=== PATIENT | male | born 1955 | race Caucasian/White ===

== ENCOUNTER 2016-09-29 22:22 | Emergency (ER) | payer BC ==
[~2016-09-29] VITALS: Ht 177.8 cm; Wt 117.9 kg
[2016-09-29 22:23] VITALS: BP 147/78
[2016-09-29] MEDS ORDERED: OMEP40CA2 PO (22:32)
[2016-09-29] MEDS ORDERED: LORA2CON5 PO (22:32)
[2016-09-29] MEDS ORDERED: LORA1TAB12 PO (22:32)
[2016-09-29] MEDS ORDERED: CLAR10TA13 PO (22:34)
[2016-09-29] MEDS ORDERED: MAGN400C2 PO (22:34)
[2016-09-29] MEDS ORDERED: FISH100049 PO (22:34)
[2016-09-29] MEDS ORDERED: ASPI1TAB PO (22:34)
[2016-09-29] MEDS ORDERED: AMIT25TA PO (22:34)
[2016-09-29] MEDS ORDERED: LIDOCAINE 1% MDV 20ML VIAL As Ordered ONE (23:35)
== END 2016-09-30 00:32 | disposition home or self-care (01) ==
LOC: M ED 09-30 00:29
DX: S61.215A Laceration without foreign body of left ring finger without damage to nail, initial encounter (principal); W29.0XXA Contact with powered kitchen appliance, initial encounter; Y92.89 Other specified places as the place of occurrence of the external cause; Y93.89 Activity, other specified; Y99.8 Other external cause status; Z79.899 Other long term (current) drug therapy; Z79.82 Long term (current) use of aspirin

== ENCOUNTER 2020-08-10 09:40 | Emergency (ER) | payer BC, MEDICARE ==
[~2020-08-10] VITALS: Ht 175.3 cm; Wt 121.7 kg
[~2020-08-10 09:40] MED LIST: AMIT25TA17 PO; ASPI81TA26 PO; CLAR1TAB13 PO; FISH100049 PO; LORA1TAB4 PO; LORA2CON5 PO; MAGN400C2 PO; OMEP40CA97 PO
[2020-08-10 09:41] VITALS: BP 140/80
--- OUTSIDE RECORDS SUMMARY | 2020-08-10 09:47 | CCD ---
Author Author [facility] Organization [facility] Address Unknown Phone Unavailable Care Team Providers Care Protection Manager Name Role Phone JARROD FARAH MD Unavailable Unavailable JARROD FARAH MD Unavailable Unavailable JARROD FARAH MD Unavailable Unavailable JARROD FARAH MD Unavailable Unavailable JARROD FARAH MD Unavailable Unavailable JARROD FARAH MD Unavailable Unavailable JARROD FARAH MD Unavailable Unavailable JARROD FARAH MD Unavailable Unavailable JARROD FARAH MD Unavailable Unavailable JARROD FARAH MD Unavailable Unavailable JARROD FARAH MD Unavailable Unavailable JARROD FARAH MD Unavailable Unavailable JARROD FARAH MD Unavailable Unavailable JARROD FARAH MD Unavailable Unavailable JARROD FARAH MD Unavailable Unavailable JARROD FARAH MD Unavailable Unavailable JARROD FARAH MD Unavailable Unavailable JARROD FRAAH MD Unavailable Unavailable JARROD FARAH MD Unavailable Unavailable JARROD FARAH MD Unavailable Unavailable JARROD FARAH MD Unavailable Unavailable JARROD FARAH MD Unavailable Unavailable JARROD FARAH MD Unavailable Unavailable JARROD FARAH MD Unavailable Unavailable CHROSTOWSKI, JARROD MD Unavailable Unavailable CHROSTOWSKI, JARROD MD Unavailable Unavailable CHROSTOWSKI, JARROD MD Unavailable Unavailable CHROSTOWSKI, JARROD MD Unavailable Unavailable CHROSTOWSKI, JARROD MD Unavailable Unavailable CHROSTOWSKI, JARROD MD Unavailable Unavailable CHROSTOWSKI, JARROD MD Unavailable Unavailable CHROSTOWSKI, JARROD MD Unavailable Unavailable CHROSTOWSKI, JARROD MD Unavailable Unavailable CHROSTOWSKI, JARROD MD Unavailable Unavailable CHROSTOWSKI, JARROD MD Unavailable Unavailable CHROSTOWSKI, JARROD MD Unavailable Unavailable CHROSTOWSKI, JARROD MD Unavailable Unavailable CHROSTOWSKI, JARROD MD Unavailable Unavailable CHROSTOWSKI, JARROD MD Unavailable Unavailable CHROSTOWSKI, JARROD MD Unavailable Unavailable LUKAS, M DALY DO Unavailable Unavailable LUKAS, M DALY DO Unavailable Unavailable LUKAS, M DALY DO Unavailable Unavailable LUKAS, M DALY DO Unavailable Unavailable LUKAS, M DALY DO Unavailable Unavailable LUKAS, M DALY DO Unavailable Unavailable LUKAS, M DALY DO Unavailable Unavailable LUKAS, M DALY DO Unavailable Unavailable LUKAS, M DALY DO Unavailable Unavailable LUKAS, M DAYL DO Unavailable Unavailable LUKAS, M DALY DO Unavailable Unavailable LUKAS, M DALY DO Unavailable Unavailable LUKAS, M DALY DO Unavailable Unavailable LUKAS, M DALY DO Unavailable Unavailable LUKAS, M DALY DO Unavailable Unavailable LUKAS, M DALY DO Unavailable Unavailable LUKAS, M DALY DO Unavailable Unavailable LUKAS, M DALY DO Unavailable Unavailable LUKAS, M DALY DO Unavailable Unavailable LUKAS, M DALY DO Unavailable Unavailable LUKAS, M DALY DO Unavailable Unavailable LUKAS, M DALY DO Unavailable Unavailable LUKAS, M DALY DO Unavailable Unavailable LUKAS, M DALY DO Unavailable Unavailable LUKAS, M DALY DO Unavailable Unavailable LUKAS, M DALY DO Unavailable Unavailable LUKAS, M DALY DO Unavailable Unavailable LUKAS, M DALY DO Unavailable Unavailable LUKAS, M DALY DO Unavailable Unavailable LUKAS, M DALY DO Unavailable Unavailable LUKAS, M DALY DO Unavailable Unavailable LUKAS, M DALY DO Unavailable Unavailable LUKAS, M DALY DO Unavailable Unavailable LUKAS, M DALY DO Unavailable Unavailable LUKAS, M DALY DO Unavailable Unavailable LUKAS, M DALY DO Unavailable Unavailable LUKAS, M DALY DO Unavailable Unavailable LUKAS, M DALY DO Unavailable Unavailable LUKAS, M DALY DO Unavailable Unavailable LUKAS, M DALY DO Unavailable Unavailable LUKAS, M DALY DO Unavailable Unavailable LUKAS, M DALY DO Unavailable Unavailable LUKAS, M DALY DO Unavailable Unavailable LUKAS, M DALY DO Unavailable Unavailable LUKAS, M DALY DO Unavailable Unavailable LUKAS, M DALY DO Unavailable Unavailable LUKAS, M DALY DO Unavailable Unavailable LUKAS, M DALY DO Unavailable Unavailable LUKAS, M DALY DO Unavailable Unavailable LUKAS, M DALY DO Unavailable Unavailable LUKAS, M DALY DO Unavailable Unavailable LUKAS, M DALY DO Unavailable Unavailable LUKAS, M DALY DO Unavailable Unavailable LUKAS, M DALY DO Unavailable Unavailable LUKAS, M DALY DO Unavailable Unavailable LUKAS, M DALY DO Unavailable Unavailable LUKAS, M DALY DO Unavailable Unavailable LUKAS, M DALY DO Unavailable Unavailable LUKAS, M DALY DO Unavailable Unavailable LUKAS, M DALY DO Unavailable Unavailable LUKAS, M DALY DO Unavailable Unavailable LUKAS, M DALY DO Unavailable Unavailable LUKAS, M DALY DO Unavailable Unavailable LUKAS, M DALY DO Unavailable Unavailable LUKAS, M DALY DO Unavailable Unavailable LUKAS, M DALY DO Unavailable Unavailable LUKAS, M DALY DO Unavailable Unavailable LUKAS, M DALY DO Unavailable Unavailable Re-disclosure Warning The records that you are about to access may contain information from federally-assisted alcohol or drug abuse programs. If such information is present, then the following federally mandated warning applies: This information has been disclosed to you from records protected by federal confidentiality rules (42 CFR part 2). The federal rules prohibit you from making any further disclosure of this information unless further disclosure is expressly permitted by the written consent of the person to whom it pertains or as otherwise permitted by 42 CFR part 2. A general authorization for the release of medical or other information is NOT sufficient for this purpose. The Federal rules restrict any use of the information to criminally investigate or prosecute any alcohol or drug abuse patient.The records that you are about to access may contain highly sensitive health information, the redisclosure of which is protected by Article 27-F of the [facility] Public Health law. If you continue you may have access to information: Regarding HIV / AIDS; Provided by facilities licensed or operated by the [facility] Office of Mental Health; or Provided by the [facility] Office for People With Developmental Disabilities. If such information is present, then the following [facility] mandated warning applies: This information has been disclosed to you from confidential records which are protected by state law. State law prohibits you from making any further disclosure of this information without the specific written consent of the person to whom it pertains, or as otherwise permitted by law. Any unauthorized further disclosure in violation of state law may result in a fine or correction sentence or both. A general authorization for the release of medical or other information is NOT sufficient authorization for further disc losure. Family History Family Member Name Family Member Gender Family Member Status Date o f Status Description Data Source(s) Unknown Female Problem MEDENT ([facility]) Unknown Unknown Problem MEDENT ([facility], ) Unknown Unknown Problem MEDENT ([facility], ) Encounters Encounter Providers Location Date Indications Data Source(s ) Outpatient Attender: JARROD FARAH MD Main Office 04/25/2020 12:00:00 PM EST [facility] Outpatient Attender: DALY GAYTAN DO [facility]MP Internal Med at [place] 02/25/2020 02:45:00 PM EDT MEDENT ([facility]) Daly Gaytan, DO: [address] [place] [address], Ph. Attender: DALY GAYTAN DO [facility] - Main Schedule 07/15/2019 12:00:00 AM EST LOAN ([facility]) Medications Medication Brand Name Start Date Product Form Dose Route Admi nistrative Instructions Pharmacy Instructions Status Indications Reaction Description Data Source(s) MM Vitamin B12 07/08/2020 12:00:00 AM EST ORAL act bowen MEDENT ([facility]) Flonase Sensimist Flonase Sensimist 04/25/2020 12:00:00 AM EST active MEDENT ([facility]) Insurance Providers Payer name Policy type / Coverage type Policy ID Covered democrat ID Covered democrat's relationship to leon Policy Leon Plan Information BCBS [place]OS [place] PPO 302/307 [id number] SP [id number] BCBS [id number] Blue Cross/Blue Shield [id number] BCBS [id number] Blue Cross/Blue Shield [id number] BCBS [id number] Blue Cross/Blue Shield [id number] BCBS [id number] Blue Cross/Blue Shield [id number] BCBS [id number] Blue Cross/Blue Shield [id number] [employer] BC[employer] Health Maintenance Organization (HMO) [id number] Self [id number] BS [place] [employer] Self [employer] BCBS Health Maintenance Organization (HMO) Self BC[place] 306/806 [id number] SP [id number] BLUE CROSS O [id number] S [id number] BLUE CROSS O [id number] S [id number] [place] PPO 302/307 [id number] SP [id number] [place] PPO 302/307 [id number] SP [id number] Social History Code Duration Value Status Description Data Source(s ) Smoking 04/25/2020 12:00:00 AM EST Patient is a former smoker completed Patient is a former smoker MEDTHEO ([facility] ) Vital Signs ID Date Data Source UNK Name Value Range Interpretation Code Description Data Source(s) Diastolic blood pressure 106 mm[Hg] 106 mm[Hg] MEDENT ([facility]) Systolic blood pressure 180 mm[Hg] 180 mm[Hg] M EDENT ([facility]) Body weight 262.00 [lb_av] 262.00 [lb_av] MEDEN T ([facility]) Body mass index (BMI) [Ratio] 37.1 kg/m2 37.1 k g/m2 [facility] ([facility]) Diastolic blood pressure 88 mm[Hg] 88 mm[Hg] [facility] ([facility] Systolic blood pressure 148 mm[Hg] 148 mm[Hg] M EDENT ([facility]) Respiratory rate 16 /min 16 /min MED[facility] ( [facility] Heart rate 73 /min 73 /min [facility] ([facility] [place] Body height 70 [in_i] 70 [in_i] MEDENT [facility] 5'10" Body weight 258.38 [lb_av] 258.38 [lb_av] [facility] T ([facility] Body weight 246 [lb_av] 246 [lb_av] LOAN ([facility]) Systolic blood pressure 140 mm[Hg] 140 mm[Hg] A THENA ([facility]) Body mass index (BMI) [Ratio] 35.3 kg/m2 35.3 k g/m2 LOAN ([facility]) Body height 70 [in_i] 70 [in_i] LOAN ([facility]) Diastolic blood pressure 88 mm[Hg] 88 mm[Hg] LOAN ([facility])
--- OUTSIDE RECORDS SUMMARY | 2020-08-10 09:47 | CCD | Continuity of Care Document ---
Author Author [facility] Organization Unknown Address [address], [address] [place] [address] Phone [phone] Problems Active Problems Provider Date Abnormal weight gain Onset: Benign essential hypertension Onset: Depressive disorder Onset: Gastroesophageal reflux disease Onset: 0 Generalized anxiety disorder Onset: History of bariatric surgical procedure Onset: Morbid obesity Onset: Osteoarthritis Onset: Sleep apnea Onset: Social History Type Date Description Comments Sex Unknown Tobacco Use Start: Unknown End: Unknown Patient is a former smoker Allergies, Adverse Reactions, Alerts Description No Known Drug Allergies Medications Active Medications SIG Qnty Indications Ordering Provide r Date MM Vitamin B12 5000mcg Tablets Dis pers 1 by mouth 2 times a week Uzma Gallegos NP 07/08/2020 Vitamin D3 Complete Tablets 1 by mouth every day Unknown Tramadol HCL 50mg Tablets 1 by mouth every 6 hours needed Unknown Tart March Advanced Capsules 2 by mouth every day Unknown Sertraline HCL 100mg Tablets 1 by mouth every day Unknown Sertraline HCL 25mg Tablets 1 by mouth every day Unknown Phentermine HCL 37.5mg Tablets take 1 tablet by mouth every day before breakfast maximum daily dose of 1 per day Unknown Paroxetine HCL 20mg Tablets 1 by mouth every day Unknown Niacin 500mg Tablets 1 by mouth once a day Unknown Multivitamin Adults 50+ Adlt 50+ T ablets 1 by mouth every day Unknown Lorazepam 1mg Tablets take 1 tablet (1 mg total) by mouth 2 (two) times a day max daily amount: 2 mg Unknown Ibuprofen 800mg Tablets take one tabet three times a day Unknown Hydrocodone-Acetaminophen 7.5-325mg Tablets Unknown Flaxseed Oil 1000mg Capsules 1 by mouth every day Unknown Cyclobenzaprine HCL 10mg Tablets take 1 tab by mouth three times a day needed Unknown Chlorhexidine Gluconate 0.12% Solution Unknown Calcium Citrate + Tablets 10 00mgs Unknown B Complex Tablets 1 by mo uth every day Unknown Amoxicillin/Clavulanate Potassium 500-125mg Tablets 1 tab twice a day for 10 days Unknown Amoxicillin/Clavulanate Potassium 875-125mg Tablets take 1 tablet twice a day x 10 days Unkno wn Amoxicillin 500mg Tablets 1 by mouth three times a day Unknown Amitriptyline HCL 25mg Tablets take 1 tablet AT bedtime Unknown Afluria Quadrivalent 2019-20 Suspension Unknown Immunizations Description No Information Available Vital Signs Date Vital Result Comment 07/08/2020 4:25pm Weight 262.00 lb BP Systolic 180 mmHg BP Diastolic 106 mmHg Results Description No Information Available Procedures Description No Information Available Medical Devices Description No Information Available Encounters Type Date Location Provider Dx Diagnosis Office Visit 02/25/2020 2:45p [facility] Surgical Services Toñito Martinez DO Z98.84 Bariatric surgery status Assessments Date Code Description Provider 02/25/2020 Z98.84 Bariatric surgery status Toñito Martinez DO Plan of Treatment No Information Available Functional Status Description No Information Available Mental Status Description No Information Available Referrals Description No Information Available
[2020-08-10] MEDS ORDERED: D31000TA2 PO (09:59)
[2020-08-10] MEDS ORDERED: CVS1CAP2 PO (09:59)
[2020-08-10] MEDS ORDERED: ZINC1TAB2 PO (09:59)
[2020-08-10] MEDS ORDERED: VITMTA PO (09:59)
--- OUTSIDE RECORDS SUMMARY | 2020-08-10 10:49 | CCD ---
Author Author [facility] Organization [facility] Address Unknown Phone Unavailable Care Team Providers Care It Security Consultant Name Role Phone JARROD FARAH MD Unavailable [...] Unavailable LUKAS, M DALY DO Unavailable Unavailable LUAKS, M DALY DO Unavailable Unavailable LUKAS, M [...] is protected by Article 27-F of the [facility] Public Health law. If you continue you may have access to information: Regarding HIV / AIDS; Provided by facilities licensed or operated by the [facility] Office of Mental Health; or Provided by the [facility] Office for People With Developmental Disabilities. If such information is present, then the following [facility] mandated warning applies: This information has [...] law may result in a fine or assisted sentence or both. A general authorization for the release of medical or other information is NOT sufficient authorization for further disc losure. Family History Family Member Name Family Member Gender Family Member Status Date o f Status Description Data Source(s) Unknown Female Problem MEDENT ([facility]) Unknown Unknown Problem MEDENT ([facility], ) Unknown Unknown Problem [facility] ([facility] ) Encounters Encounter Providers Location Date Indications Data Source(s ) Outpatient Attender: JARROD FARAH MD Main Office 04/25/2020 12:00:00 PM EST [facility] ([facility] Outpatient Attender: DALY GAYTAN DO CMP Internal Med at [place] 02/25/2020 02:45:00 PM EDT MEDENT ([facility]) Daly Gaytan, DO: [address] , [place] [address], Ph. Attender: DALY GAYTAN DO [facility] - Main Schedule 07/15/2019 12:00:00 AM EST LOAN ([facility]) Medications Medication Brand Name Start Date Product Form Dose Route Admi nistrative Instructions Pharmacy Instructions Status Indications Reaction Description Data Source(s) MM Vitamin B12 07/08/2020 12:00:00 AM EST ORAL act bowen MEDENT ([facility]) Flonase Sensimist Flonase Sensimist 04/25/2020 12:00:00 AM EST active MEDENT ([facility]) Insurance Providers Payer name Policy type / Coverage type Policy ID Covered constitution party ID Covered constitution party's relationship to leon Policy Leon Plan Information MEDICARE BLUE PPO 306 [id number] SP [id number] [place] PPO 302/307 [id number] SP [id number] BCBS [id number] Blue Cross/Blue Shield [id number] BCBS [id number] Blue Cross/Blue Shield [id number] BCBS [id number] Blue Cross/Blue Shield [id number] BCBS [id number] Blue Cross/Blue Shield [id number] BCBS [id number] Blue Cross/Blue Shield [id number] [employer] BCBS Health Maintenance Organization (HMO) [id number] Self [id number] BS [place] Commercial Self [employer] BCBS Health Maintenance Organization (HMO) Self BCBS [place] 306/806 [id number] SP [id number] BLUE CROSS O [id number] S [id number] BLUE CROSS O [id number] S [id number] [employer] PPO 302/307 [id number] SP [id number] [place] PPO 302/307 [id number] SP [id number] Social History Code Duration Value Status Description Data Source(s ) Smoking 04/25/2020 12:00:00 AM EST Patient is a former smoker completed Patient is a former smoker MEDENT ([facility] ) Vital Signs ID Date Data Source UNK Name Value Range Interpretation Code Description Data Source(s) Diastolic blood pressure 106 mm[Hg] 106 mm[Hg] MEDTHEO ([facility]) Systolic blood pressure 180 mm[Hg] 180 mm[Hg] M EDENT ([facility]) Body weight 262.00 [lb_av] 262.00 [lb_av] MEDEN T ([facility]) Body mass index (BMI) [Ratio] 37.1 kg/m2 [...] [facility] ([facility] 5'10" Body weight 258.38 [lb_av] 258.38 [lb_av] MEDEN T ([facility]) Body weight 246 [lb_av] 246 [lb_av] LOAN ([facility]) Systolic blood pressure 140 mm[Hg] 140 mm[Hg] A THENA ([facility]) Body mass index (BMI) [Ratio] 35.3 kg/m2 35.3 k g/m2 LOAN ([facility]) Body height 70 [in_i] 70 [in_i] LOAN ([facility]) Diastolic blood pressure 88 mm[Hg] 88 mm[Hg] LOAN ([facility])
[2020-08-10] MEDS ORDERED: BENZ200C70 PO (10:57)
== END 2020-08-10 11:05 | disposition home or self-care (01) ==
LOC: M ED 09:40
DX: R09.82 Postnasal drip (principal); Z79.899 Other long term (current) drug therapy
CPT/HCPCS: 87804; 99282; U0002

== ENCOUNTER → 2020-10-06 | Outpatient (CLI) | payer MEDICARE ==
[~2020-10-06] MED LIST changes: +BENZ200C70 PO; +CVS1CAP2 PO; +D31000TA2 PO; +VITMTA PO; +ZINC1TAB2 PO
--- NOTE | 2020-10-06 16:45 | REP ---
INDICATION: COUGH COMPARISON: 02/08/2012. TECHNIQUE: PA/Lateral FINDINGS: Lungs: Clear, no infiltrate. Heart: Normal in size. Mediastinum: Mediastinal silhouette unremarkable. Pleural angles: Unremarkable.. Bones and soft tissues: There are degenerative changes of the spine without compression deformity. IMPRESSION: No acute pulmonary disease. <Electronically signed by Samy Mario > 10/06/20 [id number]
== END ==
LOC: M WUC 11:11
PROVIDERS: ATTEND Family Medicine
DX: R05 Cough (principal)

== ENCOUNTER → 2021-03-14 | Outpatient (CLI) | payer MEDICARE ==
[~2021-03-14] MED LIST changes: +OMEP40CA4 PO; -OMEP40CA97 PO
--- NOTE | 2021-03-14 14:19 | REP ---
INDICATION: PAIN COMPARISON: None TECHNIQUE: Five views FINDINGS: There is minimal medial compartmental and patellar marginal osteophytosis. The compartments are symmetric and well maintained. There is no acute fracture, dislocation, or subluxation. IMPRESSION: Mild chronic changes. <Electronically signed by Musa Michaels > 03/14/21 [id number]
== END ==
LOC: M WUC 13:54
PROVIDERS: ATTEND Family Medicine
DX: M25.562 Pain in left knee (principal)

== ENCOUNTER → 2021-03-17 | Outpatient (CLI) | payer MEDICARE ==
--- NOTE | 2021-03-17 15:17 | REP ---
INDICATION: LT KNEE INTERNAL DERANGEMENT. COMPARISON: Radiographs 03/14/2021. TECHNIQUE: Multiple sequences obtained in the axial, coronal and sagittal planes. FINDINGS: Menisci: There is a complex tear of the body and posterior horn of the medial meniscus. The lateral meniscus demonstrates no evidence of a tear. Cruciate ligaments: Intact. Collateral ligaments: Edema surrounding the medial collateral ligament suggests a sprain. There is no ligament discontinuity. Extensor mechanism/patellar retinacula: Intact. Cartilage: There is moderate chondromalacia of the medial femoral condyle and tibial plateau. There is moderate diffuse chondromalacia of the patella, with moderately severe chondromalacia of the patella centrally. Bone marrow: There is mild subchondral marrow edema centrally in the patella. Joint fluid: There is moderate joint effusion. Popliteal region: No cyst. IMPRESSION: Complex tear body and posterior horn medial meniscus. Sprain medial collateral ligament. 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 Moderately severe chondromalacia centrally of the patella with mild associated subchondral marrow edema. Moderate joint effusion. <Electronically signed by Samy Mario > 03/17/21 [id number]
== END ==
LOC: M PLAIMG 13:57
PROVIDERS: ATTEND Family Medicine
DX: M23.92 Unspecified internal derangement of left knee (principal)

== ENCOUNTER → 2021-07-14 | Outpatient (CLI) | payer MEDICARE | LOC: M WUC 10:44 | PROVIDERS: ATTEND Family Medicine | DX: M54.2 Cervicalgia (principal); R05.9 Cough, unspecified; R91.8 Other nonspecific abnormal finding of lung field ==

== ENCOUNTER → 2023-07-02 | Outpatient (REF) | payer MEDICARE ==
[~2023-07-02] MED LIST changes: -AMIT25TA17 PO; +AMIT25TA19 PO; -D31000TA2 PO; +LORA1TAB23 PO; -LORA1TAB4 PO; +VITA100093 PO
== END ==
LOC: M LAB REF 12:26
PROVIDERS: ATTEND Physician Assistant Medical
DX: R05.9 Cough, unspecified (principal)

== ENCOUNTER → 2023-07-19 | Outpatient (REF) | payer MEDICARE ==
[2023-07-19 13:20] LABS: APPEARANCE, URINE TURBID (CLEAR); BACTERIA, URINE AUTO 2+ (NEGATIVE); BILIRUBIN, URINE AUTO NEGATIVE (NEGATIVE); BLOOD, URINE BLOOD NEGATIVE (NEGATIVE); COLOR, URINE YELLOW (YELLOW); GLUCOSE, URINE (UA) AUTO NEGATIVE (NEGATIVE); KETONE, URINE AUTO NEGATIVE (NEGATIVE); LEUKOCYTE ESTERASE, URINE AUTO 3+ (NEGATIVE); NITRITE, URINE AUTO NEGATIVE (NEGATIVE); PROTEIN, URINE AUTO 2+ mg/dL (NEGATIVE); RBC, URINE AUTO 12 /HPF (0-3); SPECIFIC GRAVITY URINE AUTO 1.019 (1.002-1.035); SQUAMOUS EPITHELIAL CELL UR AU 0 /HPF (0-6); WBC, URINE AUTO TNTC /HPF (0-3)
== END ==
LOC: M LAB REF 12:20
PROVIDERS: ATTEND Physician Assistant
DX: N39.0 Urinary tract infection, site not specified (principal); B95.2 Enterococcus as the cause of diseases classified elsewhere

== ENCOUNTER → 2024-01-10 | Outpatient (CLI) | payer MEDICARE | LOC: M WUC 14:20 | PROVIDERS: ATTEND Family Medicine | DX: M25.551 Pain in right hip (principal); M25.552 Pain in left hip ==

== ENCOUNTER → 2024-01-21 | Outpatient (REF) | payer MEDICARE | LOC: M SFHCWOUN 17:44 | PROVIDERS: ATTEND Surgery | DX: L89.154 Pressure ulcer of sacral region, stage 4 (principal) ==